=== PATIENT | male | born 1970 | race Caucasian/White ===

== ENCOUNTER 2023-12-06 10:19 | Outpatient (CLI) | payer MEDICAID | END 2023-12-06 23:59 | disposition critical access hospital (66) | LOC: EMS 10:19 | DX: R06.00 Dyspnea, unspecified (principal); R09.89 Other specified symptoms and signs involving the circulatory and respiratory systems; I48.91 Unspecified atrial fibrillation | CPT/HCPCS: A0425; A0427; A0999 ==

== ENCOUNTER 2023-12-06 10:23 | Emergency (ER) | payer MEDICAID ==
[2023-12-06 10:47] LABS: BASOPHILS % (AUTO) 0.4 %; EOSINOPHILS % (AUTO) 0.4 %; HCT - HEMATOCRIT 37.4 % (42.0-52.0); HGB - HEMOGLOBIN 11.3 g/dL (14.0-18.0); LYMPHOCYTES % (AUTO) 9.2 %; MEAN CORPUSCULAR HEMOGLOBIN 24.4 pg (27.0-31.0); MEAN CORPUSCULAR HGB CONC 30.2 g/dL (32.0-36.0); MEAN CORPUSCULAR VOLUME 80.6 fL (80.0-94.0); MEAN PLATELET VOLUME 10.4 fL (7.4-11.4); MONOCYTES # (AUTO) 0.8 10^3/uL (0.0-1.0); MONOCYTES % (AUTO) 7.7 %; NEUTROPHILS # (AUTO) 8.7 10^3/uL (1.5-6.6); NEUTROPHILS % (AUTO) 81.9 %; PLT - PLATELET COUNT 267 10^3/uL (130-450); RED BLOOD COUNT 4.64 10^6/uL (4.70-6.10); RED CELL DISTRIBUTION WIDTH 16.3 % (12.0-15.0); WHITE BLOOD COUNT 10.7 x10^3/uL (4.8-10.8)
[2023-12-06] MEDS: diltiaZEM INJ 5 MG/ML VIAL IVP STA ×4 (10:49→20:20)
[2023-12-06 11:01] LABS: ALBUMIN 3.8 g/dL (3.2-5.5); ALBUMIN/GLOBULIN RATIO 1.3 (1.0-2.2); ALKALINE PHOSPHATASE 76 IU/L (42-121); ALT ALANINE AMINOTRANSFERASE 44 IU/L (10-60); AST ASPARTATE AMINOTRANSFERASE 35 IU/L (10-42); BILIRUBIN,TOTAL 0.4 mg/dL (0.2-1.0); BUN - BLOOD UREA NITROGEN 21 mg/dL (6-20); CALCIUM 9.1 mg/dL (8.5-10.3); CARBON DIOXIDE - CO2 20 mmol/L (21-32); CHLORIDE 110 mmol/L (101-111); GFR - MDRD 78 (>89); GLUCOSE 151 mg/dL (74-104); POTASSIUM 3.2 mmol/L (3.5-4.5); SODIUM 139 mmol/L (135-145); TOTAL PROTEIN 6.7 g/dL (6.4-8.9)
[2023-12-06 11:03] LABS: LIPASE < 10 U/L (11-82)
--- NOTE | 2023-12-06 11:08 | ED Physician Documentation ---
PD HPI CHEST PAIN - Stated complaint Stated Complaint: FLU LIKE SYMPTOMS - Chief complaint Chief Complaint: Cardiac - Additional information Additional information: 53 yo male with hx of Childhood asthma but no other pertinent past medical hi story does not take medications daily. Patient presents emergency department via ambulance from urgent care for high heart rate. Patient said that he has been experiencing flulike symptoms now for the last 3 to 4 days he said that he has been having a hard time sleeping due to the congestion and increased work of breathing. Patient denies any cardiac history no history of A-fib he is not taking medications daily for anything. He denies any chest pain or dizziness he says that he has been feeling nauseated having a hard time eating and drinking and feels like his shortness of breath is actually significantly better after albuterol inhaler. PD PAST MEDICAL HISTORY - Past Medical History Past Medical History: Yes Respiratory: Asthma - Past Surgical History Past Surgical History: No - Present Medications Home Medications: Ambulatory Orders Medication Instructions Recorded Confirmed No Known Home Medications 12/06/23 12/06/23 - Allergies Allergies/Adverse Reactions: Allergies Allergy/AdvReac Type Severity Reaction Status Date / Time No Known Drug Allergies Allergy Verified 12/06/23 10:32 - Social History Does the pt smoke?: No Smoking Status: Never smoker Does the pt drink ETOH?: No Does the pt have substance abuse?: No - Immunizations Immunizations are current?: Yes PD ED PE NORMAL - Vitals Vital signs reviewed: Yes - General General: Alert and oriented X 3, No acute distress, Well developed/nourished - HEENT HEENT: Atraumatic, PERRL, EOMI, Other (Dry mucous membranes) - Cardiac Cardiac: No murmur, Other (Irregularly irregular heart rate) - Respiratory Respiratory: Other (Bilateral diminished breath sounds, expiratory wheezing) - Abdomen Abdomen: Normal bowel sounds, Soft, Non tender, Non distended, No organomegaly - Back Back: No CVA TTP - Derm Derm: Normal color, Warm and dry, No rash - Neuro Neuro: Alert and oriented X 3, housekeeping director 2-12 intact, No motor deficit, No sensory deficit, Normal speech - Psych Psych: Normal mood, Normal affect Results - Vitals Vitals: Vital Signs - 24 hr 12/06/23 12/06/23 12/06/23 10:24 10:31 10:33 Temperature 36.8 C Heart Rate 144 H 154 H 160 H Respiratory 28 H 25 H 22 Rate Blood Pressure 158/117 H 145/97 H 170/104 H O2 Saturation 95 91 L 94 12/06/23 12/06/23 12/06/23 10:52 11:22 11:44 Temperature Heart Rate 154 H 146 H 141 H Respiratory 25 H 25 H 13 Rate Blood Pressure 165/109 H 154/103 H O2 Saturation 93 93 12/06/23 12/06/23 12/06/23 11:50 12:24 13:00 Temperature Heart Rate 129 H 148 H 134 H Respiratory 22 23 20 Rate Blood Pressure 151/116 H 155/109 H 152/107 H O2 Saturation 98 94 12/06/23 12/06/23 12/06/23 13:48 14:00 14:53 Temperature Heart Rate 124 H 132 H 145 H Respiratory 20 24 22 Rate Blood Pressure 143/95 H 144/96 H 137/104 H O2 Saturation 92 92 93 12/06/23 12/06/23 12/06/23 15:26 16:23 20:35 Temperature Heart Rate 146 H 110 H 131 H Respiratory 20 24 33 H Rate Blood Pressure 132/107 H 152/109 H 142/91 H O2 Saturation 93 95 92 12/06/23 12/06/23 20:46 21:37 Temperature Heart Rate 79 128 H Respiratory 16 12 Rate Blood Pressure 124/84 H O2 Saturation 94 Oxygen O2 Source Room air - EKG (time done) 1034 EKG releavant findings:: EKG personally interpreted by author of this note. Relevant findings are: Rate: Rate (enter#) (147) [place]: Normal Ischemia: Other (St abnormalities to anterior leads.) Computer interpretation: Agree with computer - Labs Labs: Laboratory Tests 12/06/23 12/06/23 12/06/23 10:42 10:42 10:42 WBC 10.7 RBC 4.64 L Hgb 11.3 L Hct 37.4 L MCV 80.6 MCH 24.4 L MCHC 30.2 L RDW 16.3 H Plt Count 267 MPV 10.4 Neut # (Auto) 8.7 H Lymph # (Auto) 1.0 L [place] # (Auto) 0.8 Eos # (Auto) 0.0 Baso # (Auto) 0.0 Absolute Nucleated RBC 0.00 Nucleated RBC % 0.0 PT INR APTT Sodium 139 Potassium 3.2 L Chloride 110 Carbon Dioxide 20 L Anion Gap 9.0 BUN 21 H Creatinine 1.0 Estimated GFR (MDRD) 78 L Glucose 151 H Calcium 9.1 Magnesium 1.7 Total Bilirubin 0.4 AST 35 ALT 44 Alkaline Phosphatase 76 Troponin I High Sens 281.3 H* B-Natriuretic Peptide Total Protein 6.7 Albumin 3.8 Globulin 2.9 Albumin/Globulin Ratio 1.3 Lipase < 10 L TSH Nasal Adenovirus (PCR) Nasal B. parapertussis DNA (PCR) Nasal Coronavir 229E PCR Nasal Coronavir HKU1 PCR Nasal Coronavir NL63 PCR Nasal Coronavir OC43 PCR Nasal Enterovir/Rhinovir PCR Nasal Influenza B PCR Nasal Influenza A PCR Nasal Parainfluen 1 PCR Nasal Parainfluen 2 PCR Nasal Parainfluen 3 PCR Nasal Parainfluen 4 PCR Nasal RSV (PCR) Nasal B.pertussis DNA PCR Nasal C.pneumoniae (PCR) Guevara Human Metapneumo PCR Nasal M.pneumoniae (PCR) Nasal SARS-CoV-2 (PCR) 12/06/23 12/06/23 12/06/23 10:42 10:55 11:49 WBC RBC Hgb Hct MCV MCH MCHC RDW Plt Count MPV Neut # (Auto) Lymph # (Auto) [place] # (Auto) Eos # (Auto) Baso # (Auto) Absolute Nucleated RBC Nucleated RBC % PT INR APTT Sodium Potassium Chloride Carbon Dioxide Anion Gap BUN Creatinine Estimated GFR (MDRD) Glucose Calcium Magnesium Total Bilirubin AST ALT Alkaline Phosphatase Troponin I High Sens 264.3 H* B-Natriuretic Peptide 452 H Total Protein Albumin Globulin Albumin/Globulin Ratio Lipase TSH Nasal Adenovirus (PCR) NOT DETECTED Nasal B. parapertussis DNA (PCR) NOT DETECTED Nasal Coronavir 229E PCR NOT DETECTED Nasal Coronavir HKU1 PCR NOT DETECTED Nasal Coronavir NL63 PCR NOT DETECTED Nasal Coronavir OC43 PCR NOT DETECTED Nasal Enterovir/Rhinovir PCR NOT DETECTED Nasal Influenza B PCR NOT DETECTED Nasal Influenza A PCR NOT DETECTED Nasal Parainfluen 1 PCR NOT DETECTED Nasal Parainfluen 2 PCR NOT DETECTED Nasal Parainfluen 3 PCR NOT DETECTED Nasal Parainfluen 4 PCR NOT DETECTED Nasal RSV (PCR) NOT DETECTED Nasal B.pertussis DNA PCR NOT DETECTED Nasal C.pneumoniae (PCR) NOT DETECTED Guevara Human Metapneumo PCR NOT DETECTED Nasal M.pneumoniae (PCR) NOT DETECTED Nasal SARS-CoV-2 (PCR) NOT DETECTED 12/06/23 12/06/23 12/06/23 13:02 13:02 14:02 WBC 10.7 RBC 4.57 L Hgb 11.2 L Hct 37.3 L MCV 81.6 MCH 24.5 L MCHC 30.0 L RDW 16.3 H Plt Count 257 MPV 10.8 Neut # (Auto) Lymph # (Auto) [place] # (Auto) Eos # (Auto) Baso # (Auto) Absolute Nucleated RBC Nucleated RBC % PT INR APTT 30.7 Sodium Potassium Chloride Carbon Dioxide Anion Gap BUN Creatinine Estimated GFR (MDRD) Glucose Calcium Magnesium Total Bilirubin AST ALT Alkaline Phosphatase Troponin I High Sens 281.2 H* B-Natriuretic Peptide Total Protein Albumin Globulin Albumin/Globulin Ratio Lipase TSH Nasal Adenovirus (PCR) Nasal B. parapertussis DNA (PCR) Nasal Coronavir 229E PCR Nasal Coronavir HKU1 PCR Nasal Coronavir NL63 PCR Nasal Coronavir OC43 PCR Nasal Enterovir/Rhinovir PCR Nasal Influenza B PCR Nasal Influenza A PCR Nasal Parainfluen 1 PCR Nasal Parainfluen 2 PCR Nasal Parainfluen 3 PCR Nasal Parainfluen 4 PCR Nasal RSV (PCR) Nasal B.pertussis DNA PCR Nasal C.pneumoniae (PCR) Guevara Human Metapneumo PCR Nasal M.pneumoniae (PCR) Nasal SARS-CoV-2 (PCR) 12/06/23 12/06/23 14:02 22:28 WBC RBC Hgb Hct MCV MCH MCHC RDW Plt Count MPV Neut # (Auto) Lymph # (Auto) [place] # (Auto) Eos # (Auto) Baso # (Auto) Absolute Nucleated RBC Nucleated RBC % PT 14.4 H INR 1.3 H APTT Sodium Potassium Chloride Carbon Dioxide Anion Gap BUN Creatinine Estimated GFR (MDRD) Glucose Calcium Magnesium Total Bilirubin AST ALT Alkaline Phosphatase Troponin I High Sens B-Natriuretic Peptide Total Protein Albumin Globulin Albumin/Globulin Ratio Lipase TSH 0.56 Nasal Adenovirus (PCR) Nasal B. parapertussis DNA (PCR) Nasal Coronavir 229E PCR Nasal Coronavir HKU1 PCR Nasal Coronavir NL63 PCR Nasal Coronavir OC43 PCR Nasal Enterovir/Rhinovir PCR Nasal Influenza B PCR Nasal Influenza A PCR Nasal Parainfluen 1 PCR Nasal Parainfluen 2 PCR Nasal Parainfluen 3 PCR Nasal Parainfluen 4 PCR Nasal RSV (PCR) Nasal B.pertussis DNA PCR Nasal C.pneumoniae (PCR) Guevara Human Metapneumo PCR Nasal M.pneumoniae (PCR) Nasal SARS-CoV-2 (PCR) - Rads (name of study) Chest x-ray Relevant Findings:: Final report received, EMP independent interpretation of test, Other (Severe pulmonary edema versus superimposed infection) CT angio chest Relevant Findings:: Final report received, EMP independent interpretation of test, Other (No large pulmonary emboli, severe pulmonary edema with bronchial thickening and pleural effusions) PD Medical Decision Making - ED course ED course: 53-year-old male presents emergency department for high heart rate. Initial troponin came back elevated at 281. He denies any chest pain or dizziness but does endorsing some shortness of breath especially with exertion First elevated troponin 325 mg of aspirin was administered he was also given an initial bolus of 10 mg IV diltiazem without any success and converting back into normal sinus rhythm. We have started him on a diltiazem drip Potassium slightly suppressed at 3.2, 40 mill equivalents of p.o. potassium was administered as well as some Zofran as patient was endorsing in some mild nause a. Troponin most likely elevated due to demand ischemia, working on improving HR. We have had a hard time controlling patient's heart rate he remains in A-fib despite being on a maxed drip of diltiazem 15 mg/hour,Multiple pushes of diltiazem boluses a dose of IV Lasix for his new most likely CHF diagnosis confirmed on CT angio with pulmonary edema (pulmonary emboli was ruled out) and Nitropaste I spoke with Dr. Payan [facility] bookbinder chief who agrees with the above plan, electrolyte placement, diltiazem drip with boluses, Nitropaste, Lasix she said in addition to this to give another dose of oral potassium and 2 g IV magnesium to see if this helps with patient's heart rate. She also recommended adding on a TSH which I did complete and TSH was found to be unremarkable. She send we are still having a difficult time controlling patient's heart rate to consider adding on esmolol drip 50 mcg/kg/min. When I went to reevaluate the patient after the above interventions his heart rate had come down slightly to 109-110 and did appear to be more comfortable. 1950: Unfortunately we continue to have a difficult time placing patient we are reaching out to [facility] to see if they have a bed available [facility] still does not have any bed available. 2019: I spoke with Dr. Mason with [facility] cardiology who has agreed that the patient would greatly benefit from hospital transfer and asked me to speak with hospitalist for acceptance. 2100: Spoke with Dr. Bell hospitalist with [facility] who is agreed to accept the patient for further hospitalization. We will work on ALS transportation after we have confirmation that there is a bed available. Patient will be leaving at midnight via ALS to [facility] I have given report to Dr. Boles due to change of shift 2042 managing the patient's care. Departure - Departure Disposition: Transfer Acute Care Hosp Clinical Impression: Elevated troponin, Hypokalemia A-fib Qualifiers: Atrial fibrillation type: persistent (not longstanding) Qualified Code(s): I48.19 - Other persistent atrial fibrillation Forms: PCP List
[2023-12-06 11:14] LABS: TROPONIN I HIGH SENSITIVITY 281.3 ng/L (2.3-19.7)
[2023-12-06] MEDS ORDERED: diltiaZEM INJ 5 MG/ML VIAL ONE ×2 (11:25→20:58)
[2023-12-06] MEDS: ASPIRIN 325 MG TABLET PO STA (11:29)
[2023-12-06] MEDS: POTASSIUM CHLORIDE 20 MEQ TABLET PO STA ×3 (11:29→19:18)
[2023-12-06] MEDS: SODIUM CHLORIDE 0.9% 1,000 ML IV ONE (11:37)
[2023-12-06] MEDS: ONDANSETRON 4 MG/2 ML VIAL IVP STA (11:37)
--- NOTE | 2023-12-06 11:39 | XRAY Report ---
PROCEDURE: Chest 1V INDICATIONS: Chest pain TECHNIQUE: One view of the chest was acquired. COMPARISON: None. FINDINGS: Surgical changes and devices: None. Lungs and pleura: Peribronchial cuffing, interstitial opacities and perihilar consolidation. No effu sions. Mediastinum: Mediastinal contours appear normal. Heart size is normal. Bones and chest wall: No suspicious bony lesions. Overlying soft tissues appear unremarkable. IMPRESSION: Severe pulmonary edema. Superimposed infection not excluded given perihilar opacities. Reviewed by: Ricardo Lynn MD on 12/06/2023 11:38 AM PDT Approved by: Ricardo Lynn MD on 12/06/2023 11:38 AM PDT Station ID: [id number]
[2023-12-06] MEDS: IPRATROPIUM/ALBUTEROL 3 ML NEB INH PRN (11:40)
[2023-12-06] MEDS: diltiaZEM INJ 125 MG in DEXTROSE 5% 100 ML IV STA ×2 (11:51→21:20)
[2023-12-06 12:27] LABS: B. PARAPERTUSSIS- RESP PCR PAN NOT DETECTED; B. PERTUSSIS- RESP PCR PANEL NOT DETECTED; C. PNEUMONIAE- RESP PCR PANEL NOT DETECTED; CORONAVIRUS 229E-RESP PCR NOT DETECTED; CORONAVIRUS HKU1-RESP PCR NOT DETECTED; CORONAVIRUS NL63-RESP PCR NOT DETECTED; CORONAVIRUS OC43-RESP PCR NOT DETECTED; HUMAN METAPNEUMOVIRUS NOT DETECTED; INFLUENZA A- RESP PCR PANEL NOT DETECTED; INFLUENZA B - RESP PCR PANEL NOT DETECTED; M. PNEUMONIAE- RESP PCR PANEL NOT DETECTED; PARAINFLUENZA VIRUS 1 NOT DETECTED; PARAINFLUENZA VIRUS 2 NOT DETECTED; PARAINFLUENZA VIRUS 3 NOT DETECTED; PARAINFLUENZA VIRUS 4 NOT DETECTED; RHINOVIRUS/ENTEROVIRUS NOT DETECTED; RSV- RESP PCR PANEL NOT DETECTED; SARS-CoV-2 -RESP PCR PANEL NOT DETECTED
[2023-12-06] MEDS ORDERED: HEPARIN 25000UNITS/500ML (D5W) 25,000 UNIT/500 ML BAG IV SCH (13:00)
[2023-12-06 13:11] LABS: HCT - HEMATOCRIT 37.3 % (42.0-52.0); HGB - HEMOGLOBIN 11.2 g/dL (14.0-18.0); MEAN CORPUSCULAR HEMOGLOBIN 24.5 pg (27.0-31.0); MEAN CORPUSCULAR VOLUME 81.6 fL (80.0-94.0); MEAN PLATELET VOLUME 10.8 fL (7.4-11.4); RED BLOOD COUNT 4.57 10^6/uL (4.70-6.10); RED CELL DISTRIBUTION WIDTH 16.3 % (12.0-15.0); WHITE BLOOD COUNT 10.7 x10^3/uL (4.8-10.8)
[2023-12-06] MEDS: HEPARIN 25000UNITS/500ML (D5W) 25,000 UNIT/500 ML BAG IV SCH (13:14)
[2023-12-06] MEDS ORDERED: iohexoL-300 100 ML VIAL ONE (13:47)
[2023-12-06] MEDS: METOPROLOL SUCCINATE 25 MG TABLET PO STA (14:01)
--- NOTE | 2023-12-06 15:25 | CT Report ---
PROCEDURE: Angio Chest INDICATIONS: R/O PE CONTRAST: Omni 300 80ml TECHNIQUE: After the administration of intravenous contrast, 2 mm axial images were acquired from the pulmonary apices to the posterior costophrenic angles during the arterial phase. In addition, 1 mm lung kernel and 5 mm soft tissue kernel reconstructions were performed. 3-dimensional coronal oblique maximum int ensity projection (MIP) reformats, 8 mm axial MIP, and 5 mm coronal and sagittal MPR reformats were t hen performed through the thorax. For radiation dose reduction, the following was used: automated exp osure control, adjustment of mA and/or kV according to patient size. COMPARISON: Same day x-ray. FINDINGS: Image quality: Suboptimal due to contrast timing. Large vessels: No central or proximal lobar pulmonary embolism. No acute aortic syndrome. Mild dilati on of the ascending aorta, measuring 4.2 cm. Lungs and pleura: Central consolidation. Smooth interstitial thickening. Bronchial thickening. Small pleural effusions. Mediastinum: Heart size is enlarged. No pericardial effusion. No large vessel abnormality. No mediast inal adenopathy by size criteria. Two-vessel coronary calcifications. Chest wall and lower neck: Thyroid is unremarkable. No axillary or supraclavicular adenopathy by size . Bones: No aggressive osseous abnormality. Upper Abdomen: Unremarkable. IMPRESSION: Suboptimal evaluation due to contrast timing. No large pulmonary embolus. Severe pulmonary edema, with bronchial thickening, smooth interstitial thickening, central consolidat ion and small pleural effusions. Superimposed infection or acute lung injury is not excluded. Mild ascending aortic aneurysm measuring 4.2 cm. Yearly follow-up is recommended. Marked coronary artery calcifications for age. Consider cardiology referral. Reviewed by: Ricardo Lynn MD on 12/06/2023 3:24 PM PDT Approved by: Ricardo Lynn MD on 12/06/2023 3:24 PM PDT Station ID: [id number]
[2023-12-06] MEDS: ALBUTEROL NEB 2.5 MG/3 ML INH STA (15:53)
[2023-12-06] MEDS: FUROSEMIDE 20 MG/2 ML VIAL IVP STA (15:54)
[2023-12-06] MEDS: NITROGLYCERIN 2% PASTE TOP STA (15:55)
[2023-12-06] MEDS: MAGNESIUM SULFATE 2 GRAM 2 GM/50 ML BAG IV STA (18:09)
[2023-12-06] MEDS: iohexoL-300 100 ML VIAL IVP ONE (18:28)
[2023-12-06] MEDS: MAGNESIUM SULFATE 1 GM/2 ML VIAL IVP STA (19:34)
[2023-12-06] MEDS: MAG HYDROX/AL HYDROX/SIMETH 30 ML UDC PO STA (19:53)
[2023-12-06] MEDS: LORazepam 2 MG/ML VIAL IVP STA (20:19)
[2023-12-06 22:37] LABS: INR 1.3 (0.8-1.2); PT - PROTHROMBIN TIME 14.4 secs (9.9-12.6)
[2023-12-06 23:25] VITALS: O2SAT 93
--- NOTE | 2023-12-06 23:54 | ED Physician Documentation ---
ED Addendum - Addendum Addendum: 12/06/23 23:52 Joel Huerta is a 53-year-old male with new onset atrial fibrillation and congestive failure who has persistent tachycardia who is left in my care at shift change anticipating transfer to [facility] for continued treatment. I was asked come into his room for increased wheezing I evaluated the patient at the bedside he does have an audible wheeze lungs are with diminished breath sounds I am not hearing crackles in the bases. I did interrogate the IVC with POCUS and found a 3.2 cm vessel consistent with failure and administered further Lasix. By history I have talked to the patient and he gives history consistent with some reactive airway disease present for years. He indicates that he will periodically have wheezing and he has never used an inhaler. Earlier in the course today he did have some albuterol given which helped with his wheeze. He is given additional albuterol in the form of a DuoNeb. Prior to transfer he also received acetaminophen, Protonics and Carafate. 12/07/23 04:53 Departure - Departure Disposition: 02 Transfer Acute Care Hosp Clinical Impression: Elevated troponin, Hypokalemia, Rapid atrial fibrillation A-fib Qualifiers: Atrial fibrillation type: persistent (not longstanding) Qualified Code(s): I48.19 - Other persistent atrial fibrillation; I48.1 - Persistent atrial fibrillation CHF (congestive heart failure) Qualifiers: Heart failure type: unspecified Heart failure chronicity: acute Qualified Code(s): I50.9 - Heart failure, unspecified Condition: Fair Forms: PCP List Discharge Date/Time: 12/07/23 02:01
[2023-12-07] MEDS: FUROSEMIDE 40 MG/4 ML VIAL IVP STA (00:07)
[2023-12-07] MEDS: SUCRALFATE 1 GM/10 ML UDC PO STA (00:07)
[2023-12-07] MEDS: PANTOPRAZOLE 40 MG VIAL IVP STA (00:07)
[2023-12-07] MEDS: IPRATROPIUM/ALBUTEROL 3 ML NEB INH STA (00:24)
[2023-12-07] MEDS ORDERED: ACETAMINOPHEN 325 MG TABLET PO STA (01:23)
[2023-12-07 01:24] VITALS: BP 129/88
[2023-12-07] MEDS ORDERED: METOPROLOL SUCCINATE 25 MG TABLET PO SCH (09:00)
== END 2023-12-07 02:01 | disposition short-term general hospital (02) ==
LOC: EDUNIT# → ED 10:23
DX: I48.19 Other persistent atrial fibrillation (principal); E87.6 Hypokalemia; R79.89 Other specified abnormal findings of blood chemistry; I50.9 Heart failure, unspecified; J81.1 Chronic pulmonary edema
CPT/HCPCS: 36415; 71045; 71275; 80053; 83690; 83735; 83880; 84443; 84484; 85025; 85027; 85610; 85730; 87633; 93005; 94640; 96365; 96366; 96368; 96375; 96376; 99285; A9270; J2060; Q9967; 85520

== ENCOUNTER 2024-03-29 15:23 | Outpatient (CLI) | payer MEDICAID ==
[2024-03-29 17:48] LABS: BASOPHILS % (AUTO) 0.5 %; EOSINOPHILS # (AUTO) 0.1 10^3/uL (0.0-0.7); EOSINOPHILS % (AUTO) 1.8 %; HCT - HEMATOCRIT 39.9 % (42.0-52.0); HGB - HEMOGLOBIN 12.6 g/dL (14.0-18.0); LYMPHOCYTES # (AUTO) 1.3 10^3/uL (1.5-3.5); LYMPHOCYTES % (AUTO) 20.6 %; MEAN CORPUSCULAR HEMOGLOBIN 27.2 pg (27.0-31.0); MEAN CORPUSCULAR HGB CONC 31.6 g/dL (32.0-36.0); MEAN CORPUSCULAR VOLUME 86.2 fL (80.0-94.0); MEAN PLATELET VOLUME 10.9 fL (7.4-11.4); MONOCYTES # (AUTO) 0.6 10^3/uL (0.0-1.0); MONOCYTES % (AUTO) 9.3 %; NEUTROPHILS # (AUTO) 4.2 10^3/uL (1.5-6.6); NEUTROPHILS % (AUTO) 67.6 %; PLT - PLATELET COUNT 181 10^3/uL (130-450); RED BLOOD COUNT 4.63 10^6/uL (4.70-6.10); RED CELL DISTRIBUTION WIDTH 15.4 % (12.0-15.0); WHITE BLOOD COUNT 6.3 x10^3/uL (4.8-10.8)
[2024-03-29 18:14] LABS: ALBUMIN/GLOBULIN RATIO 1.3 (1.0-2.2); ALKALINE PHOSPHATASE 60 IU/L (42-121); ALT ALANINE AMINOTRANSFERASE 12 IU/L (10-60); AST ASPARTATE AMINOTRANSFERASE 16 IU/L (10-42); BILIRUBIN,TOTAL 0.4 mg/dL (0.2-1.0); BUN - BLOOD UREA NITROGEN 18 mg/dL (6-20); CALCIUM 9.1 mg/dL (8.5-10.3); CARBON DIOXIDE - CO2 25 mmol/L (21-32); CHLORIDE 111 mmol/L (101-111); CHOL/HDL RATIO 3.2 (<5.0); CHOLESTEROL 113 mg/dL; GFR - MDRD 78 (>89); GLUCOSE 88 mg/dL (74-104); HDL CHOLESTEROL 35 mg/dL; LDL CHOLESTEROL,CALCULATED 53 mg/dL; LDL/HDL RATIO 1.5 (<3.6); POTASSIUM 3.9 mmol/L (3.5-4.5); SODIUM 141 mmol/L (135-145); TOTAL PROTEIN 7.1 g/dL (6.4-8.9); TRIGLYCERIDES 125 mg/dL; VLDL CHOLESTEROL 25 mg/dL
[2024-03-29 18:28] LABS: THYROID STIMULATING HORMONE 1.24 uIU/mL (0.34-5.60)
[2024-03-29 22:21] LABS: ESTIMATED AVERAGE GLUCOSE 123 mg/dL (70-100); HEMOGLOBIN A1c% 5.9 % (4.27-6.07)
== END 2024-03-29 15:24 | disposition home or self-care (01) ==
LOC: LAB.N 15:23
PROVIDERS: ATTEND Nurse Practitioner Family
DX: I48.91 Unspecified atrial fibrillation (principal); J96.01 Acute respiratory failure with hypoxia; R73.9 Hyperglycemia, unspecified; I25.2 Old myocardial infarction; I50.20 Unspecified systolic (congestive) heart failure
CPT/HCPCS: 36415; 80050; 80061; 83036; 83721; 83880